=== PATIENT | female | born 2000 | race Caucasian/White ===

== ENCOUNTER 2021-08-21 10:17 | Inpatient (IN) | payer OTHER ==
[2021-08-21] MEDS: Lactated Ringer's 1,000 ML IV SCH (10:50)
[2021-08-21] MEDS ORDERED: Ibuprofen 800 MG TAB PO PRN (10:58)
[2021-08-21] MEDS ORDERED: Ondansetron PF 4 MG/2 ML Vial IVP PRN (10:58)
[2021-08-21] MEDS ORDERED: Acetaminophen 500 MG TAB PO PRN (10:58)
[2021-08-21] MEDS ORDERED: Docusate 100 MG CAP PO PRN (10:58)
[2021-08-21] MEDS ORDERED: HYDROcodone/Acetaminophen 5/325 mg Tablet PO PRN (10:58)
[2021-08-21] MEDS ORDERED: Carboprost 250 MCG/ML AMP IM PRN (10:58)
[2021-08-21] MEDS ORDERED: hydrALAZINE 20 MG/ML VIAL SLOW IVP PRN (10:58)
[2021-08-21] MEDS ORDERED: Butorphanol Tartrate 1 MG/ML VIAL SLOW IVP PRN (10:58)
[2021-08-21] MEDS ORDERED: Misoprostol 200 MCG TAB PR PRN (10:58)
[2021-08-21] MEDS ORDERED: Diphenoxylate HCl/Atropine Tablet PO PRN ×2 (10:58)
[2021-08-21] MEDS ORDERED: Methylergonovine 0.2 MG/ML VIAL IM PRN (10:58)
[2021-08-21] MEDS ORDERED: Promethazine HCl 25 MG/ML VIAL IM PRN (10:58)
[2021-08-21] MEDS ORDERED: Zolpidem Tartrate 5 MG TAB PO PRN (10:58)
[2021-08-21] MEDS ORDERED: Lidocaine 1% (PF) 30 ML VIAL SC PRN (10:58)
[2021-08-21] MEDS ORDERED: NS w/ Oxytocin 30 units 500 ML IV SCH ×2 (11:00)
[2021-08-21 11:03] VITALS: BMI 27.4
[2021-08-21 11:20] LABS: Hemoglobin 11.1 g/dL (12.0-15.5); Mean Corpuscular HGB CONC 33.2 g/dL (32.0-36.0); Mean Corpuscular Hemoglobin 32.4 pg (27.0-33.0); Mean Corpuscular Volume 97.4 fl (81.6-98.3); Mean Platelet Volume 11.8 fl (7.4-10.4); Platelet Count 223 10x3/uL (150-450); RBC Distribution Width 11.6 % (11.5-14.5); Red Blood Cell (RBC) Count 3.43 10x6/uL (3.90-5.03); White Blood Cell (WBC) Count 9.8 10x3/uL (3.5-10.5)
[2021-08-21 11:51] LABS: Hep B Surf Ag Non-Reactive S/CO (NonReactive); Syphilis Antibody Nonreactive (Nonreactive); Syphilis Antibody Index 0.03 S/CO (<1.00 Non-Reactive)
[2021-08-21 12:05] LABS: HBSAg Index 0.28 S/CO (0-0.99)
[2021-08-21] MEDS: Misoprostol 100 MCG TAB VAG SCH ×2 (12:20→15:19)
[2021-08-21 20:47] LABS: SARS-CoV-2 PCR by NAA Not Detected (NotDetected)
[2021-08-21] MEDS: Misoprostol 100 MCG TAB PO SCH (21:03)
[2021-08-22] MEDS: Lactated Ringer's 1,000 ML IV SCH ×2 (02:22→23:47)
[2021-08-22] MEDS: Misoprostol 100 MCG TAB PO SCH ×3 (13:48→23:47)
[2021-08-22] MEDS ORDERED: Lidocaine 1% (PF) 30 ML VIAL ONE (19:39)
[2021-08-23] MEDS ORDERED: diphenhydrAMINE 25 MG CAP PO PRN (00:32)
[2021-08-23] MEDS ORDERED: Milk Of Magnesia 30 ML UDCUP PO PRN (00:32)
[2021-08-23] MEDS ORDERED: Varicella virus, LIVE 0.5 ML VIAL SC ONE (00:32)
[2021-08-23] MEDS ORDERED: hydrALAZINE 20 MG/ML VIAL SLOW IVP PRN (00:32)
[2021-08-23] MEDS ORDERED: Measles/Mumps/Rubella 10 MCG/0.5 ML VIAL SC ONE (00:32)
[2021-08-23] MEDS ORDERED: Benzocaine-Menthol 82.5 ML CAN TOP PRN (00:32)
[2021-08-23] MEDS ORDERED: Misoprostol 200 MCG TAB VAG PRN (00:32)
[2021-08-23] MEDS ORDERED: HYDROcodone/Acetaminophen 5/325 mg Tablet PO PRN (00:32)
[2021-08-23] MEDS ORDERED: Promethazine HCl 25 MG/ML VIAL IM PRN (00:32)
[2021-08-23] MEDS ORDERED: Lanolin Ointment 7 GM TUBE TOP PRN (00:32)
[2021-08-23] MEDS ORDERED: NS w/ Oxytocin 30 units 500 ML IV SCH (00:32)
[2021-08-23] MEDS ORDERED: Bisacodyl 10 MG SUPP PR PRN (00:32)
[2021-08-23] MEDS ORDERED: Zolpidem Tartrate 5 MG TAB PO PRN (00:32)
[2021-08-23] MEDS ORDERED: Methylergonovine 0.2 MG/ML VIAL IM PRN (00:32)
[2021-08-23] MEDS ORDERED: Preparation H Ointment 28 GM TUBE PR PRN (00:32)
[2021-08-23] MEDS ORDERED: Boostrix 0.5 ML (Tdap) VIAL IM ONE (00:32)
[2021-08-23] MEDS ORDERED: Ondansetron PF 4 MG/2 ML Vial IVP PRN (00:32)
[2021-08-23] MEDS: Ibuprofen 800 MG TAB PO SCH ×3 (06:05→21:42)
[2021-08-23 06:40] LABS: Hemoglobin 10.7 g/dL (12.0-15.5); Mean Corpuscular HGB CONC 33.3 g/dL (32.0-36.0); Mean Corpuscular Hemoglobin 32.6 pg (27.0-33.0); Mean Corpuscular Volume 97.9 fl (81.6-98.3); Mean Platelet Volume 12.3 fl (7.4-10.4); Platelet Count 231 10x3/uL (150-450); RBC Distribution Width 11.5 % (11.5-14.5); Red Blood Cell (RBC) Count 3.28 10x6/uL (3.90-5.03); White Blood Cell (WBC) Count 17.2 10x3/uL (3.5-10.5)
[2021-08-23] MEDS: Ferrous Sulfate 325 MG TAB PO SCH ×2 (07:13→07:14)
[2021-08-23] MEDS: Docusate 100 MG CAP PO SCH ×2 (08:26→21:42)
[2021-08-23] MEDS: Prenatal Vitamin 1 TAB PO SCH (08:26)
[2021-08-24] MEDS: Ibuprofen 800 MG TAB PO SCH ×2 (05:27→14:11)
[2021-08-24 08:05] VITALS: BP 121/78; TEMP 98.1
[2021-08-24] MEDS: Prenatal Vitamin 1 TAB PO SCH (08:32)
[2021-08-24] MEDS: Docusate 100 MG CAP PO SCH (08:32)
[2021-08-24] MEDS: Ferrous Sulfate 325 MG TAB PO SCH ×2 (08:32→17:28)
== END 2021-08-24 17:45 | disposition home or self-care (01) | DRG 807 ==
LOC: CSHLD 10:17 → CSHPP 08-22 23:38
PROVIDERS: ADMIT Obstetrics & Gynecology; ATTEND Obstetrics & Gynecology
PROC: 10E0XZZ Delivery of Products of Conception, External Approach (ICD-10-PCS; principal; 2021-08-22)
PROC: 3E033VJ Introduction of Other Hormone into Peripheral Vein, Percutaneous Approach (ICD-10-PCS; 2021-08-22)
PROC: 10907ZC Drainage of Amniotic Fluid, Therapeutic from Products of Conception, Via Natural or Artificial Opening (ICD-10-PCS; 2021-08-22)
DX: O41.03X0 Oligohydramnios, third trimester, not applicable or unspecified (principal); Z37.0 Single live birth; Z3A.37 37 weeks gestation of pregnancy; Z20.822 Contact with and (suspected) exposure to COVID-19
CPT/HCPCS: 36415; 85027; 86780; 86850; 86900; 86901; 87340; J0595; J2590; J7120; U0003; U0005